=== PATIENT | male | born 1985 | race Caucasian/White ===

== ENCOUNTER 2017-05-28 08:02 | Emergency (ER) | payer BC ==
[~2017-05-28] VITALS: Ht 182.9 cm; Wt 104.3 kg
[~2017-05-28 08:02] MED LIST: ATIVAN1 M1 PO; BUSPIRONE 5MG TA5 MG PO; CARAFATE1 GM PO; DOMPERIDONE OR; DOMPERIDONE1 POW; ESOMEPRAZOLE MA20 MG PO; FLEXERIL10 M1 PO; FLEXERIL10 MG PO; METOCLOPRAMIDE H5 MG PO; NEXIUM40 MG PO; NOMEDS *; NOMEDS XX; PANTOPRAZOLE SO40 MG PO; PRILOSEC20 MG PO; PRILOSEC40 MG PO; PROBIOTIC FORMU1 CA1 PO; TAMIFLU 75MG CA75 MG PO; VOLTAREN75 MG PO; ZOFRAN ODT4 MG PO
--- OUTSIDE RECORDS SUMMARY | 2017-05-28 08:29 | External Medical Summary Rpt | CCD ---
Author Author , [employer] Address Unknown Phone [email or web address] Care Team Providers Care Customs Collector Name Role Phone VERONICA GONCALVES MD, Unavailable Unavailable VERONICA GONCALVES MD Purpose Continuity of Care Document - 08-21-2013 through 2016 Problems Code Diagnosis DOS Provider Status 840.4 840.4 08-21-2013 Bg SPRAIN [facility] CUFF E849.8 E849.8 08-21-2013 Bg ACCIDENT IN [facility] E885.9 E885.9 FALL 08-21-2013 Bg FROM [facility] SLIPPING, Hospital TRIPPING, OR STUMBLING [facility] Allergies, Adverse Reactions, Alerts Type Allergy to substance Adverse Reaction to Substance Substance Reaction Severity NO KNOWN ALLERGIES Unknown Unknown Vital Signs 08-21-2013 10:35 Name Value Interpretat Reference Comment ion Range BP 86 mm[Hg] Diastolic BP Systolic 133 mm[Hg] Heart 79 /min Rate/Pulse O2% 98 % Respiratory 20 /min Rate Encounters Encounter Start End Date Code Location Performer Type Date Emergency DIAMANTE GONCALVES MD (ER) 4 10:14 4 10:36 [facility]
--- OUTSIDE RECORDS SUMMARY | 2017-05-28 08:29 | External Medical Summary Rpt | CCD ---
Author Author , ERIK VALENC[employer] Address Unknown Phone [email or web address] Care Team Providers Care Keyboarding Clerk Name Role Phone VERONICA GONCALVES MD, Unavailable Unavailable VERONICA GONCALVES MD Purpose Continuity of Care Document - 08-21-2013 through 2016 Problems Code Diagnosis DOS Provider Status 840.4 840.4 08-21-2013 Bg SPRAIN [facility] CUFF E849.8 E849.8 08-21-2013 Bg ACCIDENT IN [facility] E885.9 E885.9 FALL 08-21-2013 Bg FROM [facility] SLIPPING, Hospital TRIPPING, OR STUMBLING [facility] Allergies, Adverse Reactions, Alerts Type Allergy to [...] GONCALVES MD (ER) 4 10:14 4 10:36 [facility]
--- OUTSIDE RECORDS SUMMARY | 2017-05-28 08:29 | External Medical Summary Rpt ---
Author Author ERIK Shaver, [employer] Organization [employer] Address Unknown Phone Unavailable
--- OUTSIDE RECORDS SUMMARY | 2017-05-28 08:29 | External Medical Summary Rpt | CCD ---
Author Author , [employer] Organization [employer] Address Unknown Phone .[employer] Immunization Name Date Rout CVX Reac Dose Comm Prov Is Faci e tion ent ider Refu lity Give sed n Td 11-1 9 999 Hist H149 No H149 (josue 3-20 ori lt), 01 al Info adso rmat rbed ion - Sour ce Unsp ecif ied
--- OUTSIDE RECORDS SUMMARY | 2017-05-28 08:29 | External Medical Summary Rpt | CCD ---
Author Author , [employer] Organization [employer] Address Unknown Phone [email or web address] Immunization Name Date Rout CVX Reac Dose Comm Prov Is Faci e tion ent ider Refu lity Give sed n Td 11-1 9 999 Hist H149 No H149 (josue 3-20 ori lt), 01 al Info adso rmat rbed ion - Sour ce Unsp ecif ied
[2017-05-28] MEDS ORDERED: REGLAN 5MG TABLE5 MG PO (08:42)
--- NOTE | 2017-05-28 08:43 | Emergency Room Report ---
History of Present Illness Time Seen by 0827 Presenting Problem in Triage Pt arrived:Walked Presenting Problem:PT REPORTS "I FEEL LIKE IM HAVING A HARD TIME BREATHING". STATES HAS TROUBLE WITH HIS ESOPHAGUS AND "FEELS LIKE SOMEONE IS CHOKING ME". PT REPORTS HAS HAD SIMILAR SYMPTOMS BEFORE BUT NOT THIS BAD IN 4-5 YEARS. 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 N Clinical Suspician of Infection? N Mental Status: 1 - Regular (Normal Baseline) Sepsis Risk:Low Sepsis Risk Have you (or family members/close friends) recently traveled outside the [place]? N If Yes, where/when: Have you had exposure to infectious disease within the past month? N TB? Other? Specify: Patient with a hx of hiatal hernia, has been evaluated by Dr. Uribe a few years ago and diagnosed with the h. hernia at that time, relieved with what he thinks was Reglan. He has been off the Reglan for several years. His symptoms have returned, however, and he finds that he often feels pressure in his esopaphagus, relieved with eating, and made worse when supine. He had similar symptoms two days ago and vomited forcefully x one episode with relief of the full feeling, but the full feeling returned yesterday and once again was positional and worse when supine. He has no fever, no night sweats, no weight loss, no URI or flu sx, no sore throat; is able to swallow well, denies any BRBPR, states a few streaks of blood when he vomited forcefully the other day but no carl hematemesis reported or any diarrhea. No abdominal pain. Tends to belch a lot. Has never been evaluated for sleep apnea. PCP is Dr. Jean. Also hx GERD. ALLERGIES Coded Allergies: No Known Allergies (04/04/16) Home Medications Reported Medications No Known Home Medications History Medical History General CAD? No Angina: No RI: No Hypertension? No Hyperlipidemia? No CHF? No DVT? No PE? No COPD? No Asthma? No Anemia? No GERD? Yes Gastric ulcers? No GI Bleed? No Hernia? No Thyroid Problems? No Hypothyroidism? No CVA? No Seizures? No Diabetes? No Renal Insuffiency? No End Stage Renal Disease? No UTI? No Stones? No BPH? No GB Disease: Yes Nephritic Syndrome? No Asplenia? No Hepatitis? No Sickle Cell Disease? No Arthritis? No Migraines? No Cataracts? No Glaucoma? No MRSA? No HIV? No TB? No Anxiety? No Depression? No Cancer? No More? No Immunization Hx DT/Tetanus > 10 YRS Flu UNKNOWN Pneumonia NEVER Surgical Hx Previous Surgery?Y WISDOM TEETH ENDOSCOPY X2 COLONOSCOPY CHOLECYSTECTOMY Family History Family Hx Family Hx Insignificant Yes (no hx GI/UC/Crohn's) Social History Smoking Hx Smoker: Never Smoker Tobacco: No Alcohol Alcohol: No Review of Systems All Other Systems Reviewed and Negative Constitutional see HPI Gastrointestinal see HPI Physical Exam Vital Signs Vital Signs Date Time Temp Pulse Resp B/P Pulse O2 O2 Flow FiO2 Ox Delivery Rate 05/28 0804 99.0 82 18 144/93 100 General Appearance normal appearance, WD/WN, no apparent distress Eye Exam - bilateral eye normal exam, bilateral eye PERRL, bilateral eye EOMI Neck normal inspection, non-tender, supple, full range of motion (no masses or MORGAN) Respiratory Status Yes: trachea midline, chest symmetrical, non tender chest. No: respiratory distress, tender on palpation, use of accessory muscles, pain on inspiration, pain on expiration. Lung Sounds bilateral: normal breath sounds, lungs clear. 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 No Departure Departure Time of Disposition 0840 Disposition DC Home or Self Care(routine) Clinical Impression Primary Impression: Hiatal hernia with GERD Condition STABLE Referrals Ted JEAN,Rustam (Family) Patient Instructions DI for Hiatal Hernia Additional Instructions Rx Reglan; see Dr. Jean and Dr. Uribe for follow up to see how to treat your chronic problem and to evaluate response to Reglan. Eat small but frequent meals , do not eat several hours prior to going to bed, and prop up head of bed when sleeping. Discharge Counseling Counseled pt/family regarding diagnosis, medications/RX, home care, follow up needs Prescriptions Current Visit Scripts Metoclopramide Hcl (Reglan) 5 MG PO AC #30 TAB ED Critical Care Critical Care No at 0853
[2017-05-28 08:50] VITALS: BP 144/93
== END 2017-05-28 08:51 | disposition home or self-care (01) ==
LOC: ER 08:02
DX: K44.9 Diaphragmatic hernia without obstruction or gangrene (principal); K21.9 Gastro-esophageal reflux disease without esophagitis